=== PATIENT | male | born 1975 | race Caucasian/White ===

== ENCOUNTER 2024-07-29 20:41 | Emergency (ER) | payer SELFPAY ==
[~2024-07-29] VITALS: Ht 190.5 cm; Wt 122.0 kg
[2024-07-29 21:08] VITALS: O2SAT 98
[2024-07-30 01:08] LABS: BASOPHILS % 0.5 % (0.0-2.0); EOSINOPHILS % 8.7 % (0.0-5.0); HEMATOCRIT. 26.1 % (42.0-52.0); HEMOGLOBIN. 9.5 g/dL (14.0-18.0); MEAN CORPUSCULAR HEMOGLOBIN 35.1 pg (28.0-32.0); MEAN CORPUSCULAR HGB CONC 36.6 g/dL (31.0-37.0); MEAN CORPUSCULAR VOLUME 95.9 fL (80.0-94.0); MEAN PLATELET VOLUME 8.4 fl (7.4-10.4); MONOCYTES % 10.5 % (2.0-8.0); NEUTROPHILS % 65.3 % (40.0-76.0); PLATELET 123 x1000/uL (130-400); RED BLOOD CELL COUNT 2.72 mill/uL (4.7-6.1); RED CELL DISTRIBUTION WIDTH 15.4 % (11.6-14.6); WHITE BLOOD COUNT 2.7 x1000/uL (4.5-11.0)
[2024-07-30 01:14] LABS: DIFFERENTIAL COMMENT 1; PROTHROMBIN TIME 10.9 sec (9.6-11.0)
[2024-07-30 01:22] LABS: CHLORIDE 102 mEq/L (98-107); POTASSIUM 3.3 mEq/L (3.5-5.1); SODIUM 134 mEq/L (136-145)
[2024-07-30 01:23] LABS: CARBON DIOXIDE 27 mEq/L (21-32)
[2024-07-30 01:23] LABS: CLARITY URINE CLEAR (CLEAR); COLOR URINE DARK YELLOW (YELLOW); GLUCOSE URINE NEGATIVE (NEGATIVE); KETONES URINE NEGATIVE (NEGATIVE); LEUKOCYTE ESTERASE URINE NEGATIVE (NEGATIVE); NITRITE URINE NEGATIVE (NEGATIVE); OCCULT BLOOD URINE NEGATIVE (NEGATIVE); PROTEIN URINE 1+ (NEGATIVE); SPECIFIC GRAVITY URINE 1.019 (1.005-1.030)
[2024-07-30 01:27] LABS: CREATININE 1.2 mg/dL (0.6-1.3)
[2024-07-30 01:28] LABS: GLUCOSE 86 mg/dL (70-105); TROPONIN I HIGH SENSITIVITY 28 ng/L (3.0-53); UREA NITROGEN BLOOD 18 mg/dL (9-23)
[2024-07-30 01:29] LABS: ALANINE AMINOTRANSFERASE 95 IU/L (10-49); ASPARTATE AMINOTRANSFERASE 94 IU/L (<34)
[2024-07-30 01:30] LABS: ALBUMIN 3.7 g/dL (3.2-4.8); BILIRUBIN DIRECT 0.4 mg/dL (<=3.0); BILIRUBIN TOTAL 0.8 mg/dL (0.1-1.0); PROTEIN TOTAL 7.1 g/dL (6.0-8.3)
[2024-07-30 01:32] LABS: ETHANOL BLOOD < 10 mg/dL (<10)
[2024-07-30 01:46] LABS: BACTERIA URINE NONE SEEN; RBC URINE NONE SEEN /hpf (0-2); SQUAMOUS EPITHELIAL CELL URINE NONE SEEN /lpf (RARE/1+); WBC URINE NONE SEEN /hpf (0-2)
[2024-07-30 02:39] LABS: TROPONIN I HIGH SENSITIVITY 25 ng/L (3.0-53)
[2024-07-30 02:40] LABS: ACETAMINOPHEN < 2 ug/mL (10-30)
[2024-07-30] MEDS: GABAPENTIN 400MG CAPSULE PO NR (02:50)
[2024-07-30 02:57] LABS: ETHANOL BLOOD < 10 mg/dL (<10)
[2024-07-30 20:58] LABS: *AMPHETAMINES SCREEN URINE PRESUMPTIVE POSITIVE (NEGATIVE); *BENZODIAZEPINES SCREEN URINE NEGATIVE (NEGATIVE)
[2024-07-30 20:59] LABS: *BARBITURATES SCREEN URINE NEGATIVE (NEGATIVE); *COCAINE SCREEN URINE NEGATIVE (NEGATIVE); CANNABINOID URINE SCREEN NEGATIVE (NEGATIVE); ECSTASY MDMA SCREEN URINE NEGATIVE (NEGATIVE); METHADONE URINE SCREEN NEGATIVE (NEGATIVE); OPIATES URINE SCREEN NEGATIVE (NEGATIVE); PHENCYCLIDINE URINE SCREEN NEGATIVE (NEGATIVE)
[2024-07-30] MEDS ORDERED: DIPHENHYDRAMINE 50MG CAPSULE PO ONE (21:00)
[2024-07-30] MEDS: POTASSIUM CHLORIDE 20MEQ TABLET SR PO ONE (21:48)
[2024-07-30] MEDS: DIPHENHYDRAMINE 25MG CAPSULE PO NR (21:48)
[2024-07-31 14:00] VITALS: BP 130/65; PULSE 68; RESP 14; TEMP 36.72516; O2SAT 100
== END 2024-07-31 14:39 | disposition home or self-care (01) ==
LOC: ER 20:41
DX: R45.851 Suicidal ideations (principal); J44.9 Chronic obstructive pulmonary disease, unspecified
CPT/HCPCS: 80076; 80305; 80048; 81003; 80307; 80329; 80320; 83880; 83690; 85025; 85610; 84484; 36415; 99284; 87426; 71045; 93970; Q0163; G0480

== ENCOUNTER 2024-07-31 21:39 | Emergency (ER) | payer SELFPAY ==
[~2024-07-31] VITALS: Ht 172.7 cm; Wt 82.0 kg
[2024-07-31 21:44] VITALS: O2SAT 100
[2024-07-31] MEDS: ACETAMINOPHEN 325MG TABLET PO ONE (22:00)
[2024-07-31 23:02] LABS: CLARITY URINE CLEAR (CLEAR); COLOR URINE DARK YELLOW (YELLOW); GLUCOSE URINE NEGATIVE (NEGATIVE); KETONES URINE TRACE (NEGATIVE); LEUKOCYTE ESTERASE URINE TRACE (NEGATIVE); NITRITE URINE NEGATIVE (NEGATIVE); OCCULT BLOOD URINE NEGATIVE (NEGATIVE); PH URINE 6.5 (4.5-8.0); PROTEIN URINE 1+ (NEGATIVE); SPECIFIC GRAVITY URINE 1.021 (1.005-1.030)
[2024-07-31 23:12] LABS: *AMPHETAMINES SCREEN URINE PRESUMPTIVE POSITIVE (NEGATIVE); *BARBITURATES SCREEN URINE NEGATIVE (NEGATIVE); *BENZODIAZEPINES SCREEN URINE NEGATIVE (NEGATIVE); *COCAINE SCREEN URINE NEGATIVE (NEGATIVE); CANNABINOID URINE SCREEN NEGATIVE (NEGATIVE); ECSTASY MDMA SCREEN URINE NEGATIVE (NEGATIVE); METHADONE URINE SCREEN NEGATIVE (NEGATIVE); OPIATES URINE SCREEN NEGATIVE (NEGATIVE); PHENCYCLIDINE URINE SCREEN NEGATIVE (NEGATIVE)
[2024-07-31 23:16] LABS: BACTERIA URINE TRACE; SQUAMOUS EPITHELIAL CELL URINE RARE /lpf (RARE/1+)
[2024-07-31 23:17] LABS: RBC URINE NONE SEEN /hpf (0-2); WBC URINE 0-2 /hpf (0-2)
[2024-07-31 23:49] LABS: CARBON DIOXIDE 28 mEq/L (21-32); CHLORIDE 102 mEq/L (98-107); POTASSIUM 3.7 mEq/L (3.5-5.1); SODIUM 134 mEq/L (136-145)
[2024-07-31 23:50] LABS: CALCIUM 8.9 mg/dL (8.7-10.4)
[2024-07-31 23:54] LABS: CREATININE 1.1 mg/dL (0.6-1.3)
[2024-07-31 23:55] LABS: GLUCOSE 84 mg/dL (70-105); UREA NITROGEN BLOOD 14 mg/dL (9-23)
[2024-07-31 23:56] LABS: ACETAMINOPHEN < 2 ug/mL (10-30); ALANINE AMINOTRANSFERASE 48 IU/L (10-49); ALBUMIN 3.5 g/dL (3.2-4.8); ASPARTATE AMINOTRANSFERASE 48 IU/L (<34)
[2024-07-31 23:57] LABS: BILIRUBIN DIRECT 0.3 mg/dL (<=3.0); BILIRUBIN TOTAL 0.8 mg/dL (0.1-1.0); PROTEIN TOTAL 6.7 g/dL (6.0-8.3)
[2024-08-01 00:11] LABS: ETHANOL BLOOD < 10 mg/dL (<10)
[2024-08-01 00:25] LABS: BASOPHILS % 0.4 % (0.0-2.0); EOSINOPHILS % 6.1 % (0.0-5.0); HEMATOCRIT. 27.7 % (42.0-52.0); HEMOGLOBIN. 9.9 g/dL (14.0-18.0); LYMPHOCYTES % 13.7 % (20.0-50.0); MEAN CORPUSCULAR HEMOGLOBIN 34.7 pg (28.0-32.0); MEAN CORPUSCULAR HGB CONC 35.8 g/dL (31.0-37.0); MEAN PLATELET VOLUME 8.5 fl (7.4-10.4); MONOCYTES % 11.6 % (2.0-8.0); NEUTROPHILS % 68.2 % (40.0-76.0); PLATELET 112 x1000/uL (130-400); RED BLOOD CELL COUNT 2.86 mill/uL (4.7-6.1); WHITE BLOOD COUNT 2.6 x1000/uL (4.5-11.0)
[2024-08-01 06:48] VITALS: BP 139/77; PULSE 107; RESP 18; TEMP 36.89184; O2SAT 99
== END 2024-08-01 11:51 | disposition home or self-care (01) ==
LOC: ER 21:39
DX: F41.9 Anxiety disorder, unspecified (principal); F20.9 Schizophrenia, unspecified; J44.9 Chronic obstructive pulmonary disease, unspecified; F15.10 Other stimulant abuse, uncomplicated; Z20.822 Contact with and (suspected) exposure to COVID-19
CPT/HCPCS: 36415; 80048; 80076; 80305; 80307; 80320; 80329; 81003; 85025; 87426; 99285; G0480